=== PATIENT | female | born 1950 | race Caucasian/White ===

== ENCOUNTER 2017-09-24 11:00 | Inpatient (IN) | payer OTHER ==
[2017-09-24] MEDS ORDERED: ATORVASTATIN CA10 MG PO (15:14)
[2017-09-30] MEDS ORDERED: GABAPENTIN800 MG PO (11:17)
[2017-09-30] MEDS ORDERED: CLONAZEPAM1 MG PO (11:17)
[2017-09-30] MEDS ORDERED: DOCUSATE SODIU100 MG PO (11:17)
[2017-09-30] MEDS ORDERED: PERCOCET 5-3251 EACH PO (11:17)
[2017-09-30] MEDS ORDERED: AMOX1TAB12 PO (11:17)
== END 2017-09-30 13:40 | disposition home or self-care (01) | DRG 454 ==
LOC: O/R 09-29 05:53 → SURG 09-29 05:53 → SURH 09-29 10:30 → SURG 09-30 13:40
PROVIDERS: Orthopaedic Surgery Orthopaedic Surgery of the Spine
PROC: 0SG0071 Fusion of Lumbar Vertebral Joint with Autologous Tissue Substitute, Posterior Approach, Posterior Column, Open Approach (ICD-10-PCS; 2017-09-29)
PROC: 0ST20ZZ Resection of Lumbar Vertebral Disc, Open Approach (ICD-10-PCS; 2017-09-29)
PROC: 0SG10AJ Fusion of 2 or more Lumbar Vertebral Joints with Interbody Fusion Device, Posterior Approach, Anterior Column, Open Approach (ICD-10-PCS; 2017-09-29)
PROC: 07DS3ZZ Extraction of Vertebral Bone Marrow, Percutaneous Approach (ICD-10-PCS; 2017-09-29)
PROC: 0SG10A0 Fusion of 2 or more Lumbar Vertebral Joints with Interbody Fusion Device, Anterior Approach, Anterior Column, Open Approach (ICD-10-PCS; principal; 2017-09-29 10:30)
DX: M41.56 Other secondary scoliosis, lumbar region (principal); M51.06 Intervertebral disc disorders with myelopathy, lumbar region; M43.16 Spondylolisthesis, lumbar region; M48.061 Spinal stenosis, lumbar region without neurogenic claudication

== ENCOUNTER 2022-01-06 11:26 | Outpatient (CLI) | payer OTHER ==
[~2022-01-06 11:26] MED LIST: AMOX1TAB12 PO; ATORVASTATIN CA10 MG PO; CLONAZEPAM1 MG PO; DOCUSATE SODIU100 MG PO; GABAPENTIN800 MG PO; PERCOCET 5-3251 EACH PO
== END 2022-01-06 11:29 | disposition home or self-care (01) ==
LOC: SONOGRAMA 11:26 → SPORTMEDIC 11:26 → SONOGRAMA 11:29
PROVIDERS: ATTEND Pathology Anatomic Pathology & Clinical Pathology
DX: N63.0 Unspecified lump in unspecified breast (principal)